=== PATIENT | male | born 1955 | race Caucasian/White ===

== ENCOUNTER 2017-09-11 15:32 | Emergency (ER) | payer BC, OTHER ==
[~2017-09-11] VITALS: Ht 185.4 cm; Wt 84.0 kg
[~2017-09-11 15:32] MED LIST: ASPCH81X PO
[2017-09-11 15:34] VITALS: TEMP 36.3; Ht 185.4 cm; Wt 84.0 kg
[2017-09-11] MEDS ORDERED: PROPARACAINE HCL 0.5% OP SOLN 15 ML BTL OP STA (15:58)
[2017-09-11] MEDS ORDERED: OXYC1TAB3 PO (16:23)
[2017-09-11 16:32] VITALS: BP 153/100; PULSE 61; O2SAT 95
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
== END 2017-09-11 16:36 | disposition home or self-care (01) ==
LOC: C.EDB 15:35 → C.EDD 16:36
DX: T20.10XA Burn of first degree of head, face, and neck, unspecified site, initial encounter (principal); Z79.82 Long term (current) use of aspirin; Z86.73 Personal history of transient ischemic attack (TIA), and cerebral infarction without residual deficits; X12.XXXA Contact with other hot fluids, initial encounter